=== PATIENT | female | born 1995 | race Caucasian/White ===

== ENCOUNTER 2025-04-07 21:32 | Emergency (ER) | payer SELFPAY ==
[2025-04-07] MEDS: Ketorolac 30 MG/ML SDV IM ONE (22:27)
[2025-04-07] MEDS: Cyclobenzaprine 10 MG Tab PO ONE (22:27)
[2025-04-07] MEDS: Acetaminophen/HYDROcodone 325-10 MG Tab PO STA (23:03)
== END 2025-04-08 00:27 | disposition home or self-care (01) ==
LOC: MW.ED 21:32
DX: S76.912A Strain of unspecified muscles, fascia and tendons at thigh level, left thigh, initial encounter (principal); Z88.1 Allergy status to other antibiotic agents; X58.XXXA Exposure to other specified factors, initial encounter
CPT/HCPCS: 73564; 96372; 99283; A9270; J1885; 99282

== ENCOUNTER 2025-05-13 14:00 | Emergency (ER) | payer MEDICAID ==
[2025-05-13 14:54] LABS: HEMATOCRIT 37.9 % (37.0-47.0); HEMOGLOBIN 12.4 g/dL (12.0-16.0); MEAN CORPUSCULAR HEMOGLOBIN 26.8 pg (28.0-32.0); MEAN CORPUSCULAR HGB CONC 32.7 g/dL (32.0-36.0); MEAN CORPUSCULAR VOLUME 81.9 fL (83.0-99.0); MEAN PLATELET VOLUME 9.8 fL (9.4-12.3); PLATELET COUNT,PLT 132 K/uL (150-400); RED BLOOD CELL COUNT 4.63 M/uL (4.10-5.30); WHITE BLOOD CELL COUNT,WBC 2.49 K/uL (3.9-11.3)
[2025-05-13] MEDS: Sodium Chloride 0.9% 1,000 ML IV ONE (14:58)
[2025-05-13] MEDS: Acetaminophen 500 MG Tab PO ONE (14:58)
[2025-05-13] MEDS: Ketorolac 30 MG/ML SDV IVPUSH ONE (14:58)
[2025-05-13 15:15] LABS: A/G RATIO 1.1 (0.9-1.6); ALBUMIN 4.2 g/dL (3.4-5.0); BILIRUBIN TOTAL 0.4 mg/dL (0.2-1.0); CARBON DIOXIDE,CO2 26.6 mmol/L (21.0-32.0); CREATININE 0.7 mg/dL (0.6-1.0); EST CRCL DRUG DOSING (CG) 90.39 mL/min; MAGNESIUM 1.8 mg/dL (1.8-2.4); POTASSIUM,K 3.8 mmol/L (3.5-5.1)
[2025-05-13 15:23] LABS: LACTIC ACID 1.1 mmol/L (0.4-2.0)
[2025-05-13 15:28] LABS: CALCIUM 8.9 mg/dL (8.5-10.1)
[2025-05-13 15:30] LABS: APPEARANCE,URINE CLEAR; BILIRUBIN,URINE NEGATIVE (NEGATIVE); GLUCOSE,URINE NEGATIVE (NEGATIVE); KETONES,URINE NEGATIVE (NEGATIVE); LEUKOCYTE ESTERASE,URINE NEGATIVE (NEGATIVE); NITRITE,URINE NEGATIVE (NEGATIVE); OCCULT BLOOD,URINE TRACE-LYSED (NEGATIVE); PROTEIN,URINE NEGATIVE (NEGATIVE); UROBILINOGEN,URINE 0.2 EU/dL (<2.0)
[2025-05-13 15:38] LABS: COLOR,URINE STRAW
[2025-05-13 15:39] LABS: BACTERIA,URINE NOT SEEN (NEGATIVE); EPITHELIAL CELLS,URINE RARE (NONE-FEW); RBC,URINE 0-1 (0-2/HPF); WBC,URINE NONE SEEN (0-5/HPF)
[2025-05-13 15:52] LABS: SEG NEUTROPHILS ABSOLUTE MAN 0.95 K/uL (1.80-7.70); SEG NEUTROPHILS PERCENT MAN 38 % (41-71)
[2025-05-13 15:53] LABS: EOSINOPHILS ABSOLUTE MAN 0.12 K/uL (0.00-0.45); EOSINOPHILS PERCENT MAN 5 % (0-6); LYMPHOCYTES ABSOLUTE MAN 1.15 K/uL (1.00-4.80); LYMPHOCYTES PERCENT MAN 46 % (24-44); MONOCYTES ABSOLUTE MAN 0.27 K/uL (0.00-0.80); MONOCYTES PERCENT MAN 11 % (0-8)
[2025-05-13] MEDS: AZTREONAM IVPUSH ONE (16:38)
[2025-05-13] MEDS: STERILE IVPUSH ONE (16:38)
[2025-05-13] MEDS: WATER FOR INJECTION IVPUSH ONE (16:38)
[2025-05-13] MEDS: methylPREDNISolone Sodium Succinate 125 MG/2 ML SDV IVPUSH ONE (16:51)
[2025-05-13] MEDS ORDERED: SODIUM CHLORIDE 0.9% IVPUSH SCH (18:00)
[2025-05-13] MEDS ORDERED: DAPTOMYCIN IVPUSH SCH (18:00)
[2025-05-13] MEDS: DAPTOMYCIN IVPUSH ONE (18:06)
[2025-05-13] MEDS: SODIUM CHLORIDE 0.9% IVPUSH ONE (18:06)
== END 2025-05-13 20:43 ==
LOC: MW.ED 14:00
DX: A41.9 Sepsis, unspecified organism (principal); E86.0 Dehydration; Z88.8 Allergy status to other drugs, medicaments and biological substances; Z79.899 Other long term (current) drug therapy; Z75.3 Unavailability and inaccessibility of health-care facilities
CPT/HCPCS: 36415; 80053; 81001; 81025; 83605; 83690; 83735; 85025; 86308; 87040; 87651; 96361; 96374; 96375; 99284; A9270; J0457; J0878; J1885; J2919; J7030; 99285